=== PATIENT | male | born 1935 | race Caucasian/White ===

== ENCOUNTER 2018-10-13 15:26 | Inpatient (IN) | payer MEDICARE, OTHER ==
[2018-10-13 16:02] LABS: #Basophils 0.1 thou/uL (0.0-0.2); #Eosinphils 0.3 thou/uL (0.0-0.7); #Lymphocytes 1.5 thou/uL (1.20-3.40); #Monocytes 1.4 thou/uL (0.11-0.59); #Neutrophils 14.8 thou/uL (1.40-6.50); %Basophils 0.4 % (0.0-1.0); %Eosinophils 1.7 % (0.0-10.0); %Lymphocytes 8.5 % (21.0-51.0); %Monocytes 7.9 % (0.0-10.0); %Neutrophils 81.5 % (42.0-75.0); Hemoglobin 11.9 g/dL (14.0-18.0); Mean Corpuscular HGB CONC 31.6 g/dL (32.0-36.0); Mean Corpuscular Hemoglobin 30.3 pg (27.0-31.0); Mean Corpuscular Volume 96.1 fL (78.0-98.0); Mean Platelet Volume 7.8 fL (7.4-10.4); Platelet Count 369 thou/uL (130-400); RBC Distribution Width 13.6 % (11.5-14.5); Red Blood Cell (RBC) Count 3.92 mill/uL (4.70-6.10); White Blood Cell (WBC) Count 18.2 thou/uL (4.8-10.8)
[2018-10-13 16:22] LABS: ALT (SGPT) 8 U/L (8-55); AST (SGOT) 15 U/L (5-34); Albumin 2.9 g/dL (3.4-4.8); Alkaline Phosphatase 103 U/L (40-150); Anion Gap 17 mmol/L (10-20); BUN (Urea Nitrogen) 16 mg/dL (8.4-25.7); Bilirubin, Total 0.3 mg/dL (0.2-1.2); Calc. Creatinine Clearance 0 mL/min (70-130); Calcium 8.1 mg/dL (7.8-10.44); Carbon Dioxide 20 mmol/L (23-31); Chloride 109 mmol/L (98-107); Estimated GFR-MDRD 57; Glucose 150 mg/dL (83-110); Potassium 3.8 mmol/L (3.5-5.1); Protein, Total 5.9 g/dL (5.8-8.1); Sodium 142 mmol/L (136-145)
--- NOTE | 2018-10-13 16:28 | RAD ---
FRONTAL VIEW CHEST TWO VIEWS PROVIDED: INDICATION: Dyspnea. Hypoxia. FINDINGS: There is diffuse abnormal alveolar and interstitial opacification throughout the lungs. There is ple ural fluid bilaterally. Right sided PICC line is present. Vascular calcification is seen. There is enlargement of the cardiac silhouette and pulmonary vasculature. IMPRESSION: Findings favor decompensated congestive heart failure with bilateral pulmonary edema and pleural flui d. Recommend followup to resolution. POS: C
[2018-10-13 17:54] LABS: CKMB 1.5 ng/mL (0-6.6)
[2018-10-13] MEDS ORDERED: Piperacillin/Tazobactam 4.5 GM VIAL ONE (18:06)
[2018-10-13] MEDS ORDERED: Sodium Chloride 0.9% 100 ML ONE (18:07)
[2018-10-13 18:18] LABS: Bilirubin Negative (Negative); Blood, Urine Negative (Negative); Clarity CLEAR (Clear); Glucose, Urine (Dipstick) 100 mg/dL (Negative); Leukocyte Negative (Negative); Nitrite Negative (Negative); Protein, Urine (Dipstick) 100 mg/dL (Neg-Trace); Urobilinogen 0.2 mg/dL (0.2-1.0); pH, Urine 5.5 (5.0-9.0)
[2018-10-13 18:24] LABS: Pathc Cast-AUWi Flag 3.48 (0-2.49)
[2018-10-13 18:32] LABS: Bacteria/HPF 1+ HPF (None Seen); Hyaline Casts/LPF 0-3 HYALINE CAST LPF (0-3 Hyaline); Manual Microscopic Reviewed? No Path Casts Seen; RBC/HPF None Seen HPF (0-3); Renal Epithelial None Seen HPF (0-3); Transitional Epithelial NONE SEEN HPF (0-3)
[2018-10-13] MEDS ORDERED: Furosemide 20 MG/2 ML VIAL ONE (18:32)
[2018-10-13] MEDS ORDERED: Vancomycin HCl 1 GM in Premix Bag 1 BAG IVPB SCH (18:45)
[2018-10-13 19:53] LABS: Lactic Acid 1.2 mmol/L (0.5-2.2)
[2018-10-13] MEDS ORDERED: Ondansetron PF 4 MG/2 ML Vial IVP PRN (22:06)
[2018-10-13] MEDS ORDERED: Acetaminophen 325 MG TAB PO PRN (22:06)
[2018-10-13] MEDS ORDERED: Ondansetron ODT 4 MG TAB PO PRN (22:06)
[2018-10-14 01:32] VITALS: BMI 20.7
[2018-10-14] MEDS: Piperacillin/Tazobactam 3.375 GM in Sodium Chloride 0.9% 100 ML IVPB SCH ×3 (02:00→11:29)
[2018-10-14 06:28] LABS: #Basophils 0.1 thou/uL (0.0-0.2); #Eosinphils 0.3 thou/uL (0.0-0.7); #Lymphocytes 1.5 thou/uL (1.20-3.40); #Monocytes 1.2 thou/uL (0.11-0.59); %Basophils 0.5 % (0.0-1.0); %Eosinophils 2.9 % (0.0-10.0); %Lymphocytes 13.7 % (21.0-51.0); %Monocytes 10.9 % (0.0-10.0); Hemoglobin 10.3 g/dL (14.0-18.0); Mean Corpuscular HGB CONC 32.6 g/dL (32.0-36.0); Mean Corpuscular Volume 95.1 fL (78.0-98.0); Mean Platelet Volume 7.8 fL (7.4-10.4); Platelet Count 304 thou/uL (130-400); RBC Distribution Width 13.5 % (11.5-14.5); Red Blood Cell (RBC) Count 3.32 mill/uL (4.70-6.10); White Blood Cell (WBC) Count 11.1 thou/uL (4.8-10.8)
[2018-10-14 06:51] LABS: Troponin I 0.272 ng/mL (< 0.028)
[2018-10-14 06:55] LABS: Anion Gap 15 mmol/L (10-20); BUN (Urea Nitrogen) 16 mg/dL (8.4-25.7); Calc. Creatinine Clearance 53 mL/min (70-130); Calcium 8.2 mg/dL (7.8-10.44); Carbon Dioxide 23 mmol/L (23-31); Chloride 107 mmol/L (98-107); Estimated GFR-MDRD 63; Glucose 87 mg/dL (83-110); Potassium 3.2 mmol/L (3.5-5.1); Sodium 142 mmol/L (136-145)
--- NOTE | 2018-10-14 07:19 | HP ---
PRIMARY CARE PHYSICIAN: Dr. Alfonso Posey. CODE STATUS: Full code. TIME OF EVALUATION: 9:45 p.m. CHIEF COMPLAINT: Shortness of breath. 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 The patient came to the hospital after having shortness of breath for the past few days, severe generalized weakness, being unable to do his activities of daily living. Also reported having chills. Symptoms are severe, gradually worsening. The patient has been on antibiotics as the patient has a PICC line. The patient reportedly had an infective endocarditis that was verified by echo, has been followed by Dr. Sharma due to aortic valve disease. Reportedly, the patient's saturation was 82% on room air, when he was coming here and had been on some oxygen by nasal cannula to keep saturation over 90%. REVIEW OF SYSTEMS: CONSTITUTIONAL: The patient had chills. No fever. Generalized weakness was severe. RESPIRATORY: Shortness of breath, no cough or sputum production. CARDIOVASCULAR: No chest pain or palpitation. GASTROINTESTINAL: No nausea. No vomiting, diarrhea, or abdominal pain. WOODENWARE ASSEMBLER: No dizziness, headache, or feeling lightheaded. GENITOURINARY: No burning on urination. EXTREMITIES: No leg swelling. All other systems were reviewed and negative except for the findings mentioned above. PAST MEDICAL HISTORY: Positive for the findings mentioned in the HPI. PAST SURGICAL HISTORY: No surgical history. PSYCHIATRIC HISTORY: No previous psych history. FAMILY HISTORY: Reviewed and noncontributory for current presentation. KNOWN ALLERGIES: No known drug allergies. REPORTED MEDICATIONS: 1. Ampicillin. 2. Aspirin. 3. Benzonatate. 4. Ceftriaxone. 5. Dorzolamide. 6. Finasteride. PHYSICAL EXAMINATION: VITAL SIGNS: On presentation, heart rate 135, blood pressure 157/85 with respiratory rate of 28, temperature 98.2, and oxygen saturation was 95% on room air. GENERAL APPEARANCE: The patient appears to be ill, oriented, not in acute distress. HEENT: Eyes, normal conjunctivae. Moist oral mucosa. Anicteric. No JVD. RESPIRATORY: Bilateral air entry. No rales. No wheezing. Symmetric expansion. CARDIOVASCULAR: Normal rate, regular rhythm. No murmurs. No gallop. No edema. ABDOMEN: Soft. Normal bowel sounds. MUSCULOSKELETAL: Baseline range of motion and strength. No tenderness. SKIN: Warm, intact. No pallor. No rash or redness. Peripheral pulses are present. Capillary refill seems to be intact. NEURO: No evidence of any new focal weakness. Baseline speech. Cranial nerves seem to be intact. PSYCH: The patient is in good mood. No anxiety. Optimal judgment. DIAGNOSTIC DATA: Chest x-ray was reviewed. The patient has findings favoring decompensated heart failure with bilateral pulmonary edema and pleural fluid. Recommended followup for resolution. LABORATORY DATA: Labs were reviewed. The patient has white count 18.2, hemoglobin 11.9, MCV 96.1, and platelet count 369. Sodium was 142, potassium 3.8, chloride 109, carbon dioxide was 20, anion gap 17, BUN 16, and glucose 150. Lactic acid 2.3, came down to 1.2. Calcium 9.1. AST 15, ALT 8, alkaline phosphatase 103, and CK 29. Troponin was 0.160. Beta-natriuretic peptide was 3109. Serum total protein 5.9 and albumin 2.9. Urine was positive with white count of 7 to 10. ASSESSMENT/PLAN: The patient will be placed in the hospital with following medical problems: 1. Infective endocarditis bacteremia. The patient has been receiving treatment at home that might not be resolving appropriately. The patient has been started on broad-spectrum antibiotics. We will consult Dr. Caballero for any further recommendation at this point. Also, we will consult Cardiology, Dr. Sharma, who has followed this patient before. 2. Possible underlying congestive heart failure on top of sepsis, we will manage with caution to find the right fluid balance for this patient. The patient is very ill. 3. Underlying pneumonia and septic emboli from endocarditis and bacteremia, the patient will be placed on antibiotics. We will follow recommendation, and further management. 4. Sepsis. The patient is tachycardic with white count of 18.2. Possible source of infection is bacteremia, endocarditis, and pneumonia. We will treat as above. Limited with fluid volume given underlying possible congestive heart failure exacerbation. 5. Lactic acidosis at 2.3, came down to normal after initial approach in the ER. We will treat the underlying condition. 6. Non-ST segment elevation myocardial infarction, likely non-ST segment elevation myocardial infarction type 2 given underlying sepsis/congestive heart failure. We will trend troponins. We will adjust treatment accordingly. We are consulting Cardiology for complex underlying comorbidities. We will follow recommendation. 7. Acute exacerbation of congestive heart failure. The patient has very elevated proBNP. There is no echo in file. The patient reportedly had an echo recently. We will do a 2D echo. a. The patient was supposed to see Dr. Martini, the Infectious Disease doctor tomorrow. However, due to complications, we will call Dr. Caballero for recommendation on this patient. He has all records including KIRT done for diagnosis in an outside facility. This can be requested in the morning. Family reported they are bringing that records. 8. Deep venous thrombosis prophylaxis. Job ID: [id number]
[2018-10-14] MEDS ORDERED: Vancomycin HCl 750 MG in Sodium Chloride 0.9% 250 ML 250 ML IVPB SCH (09:00)
[2018-10-14] MEDS ORDERED: Prevnar 13-Val Conj/PF 0.5 ML SYRINGE IM ONE (09:00)
[2018-10-14] MEDS ORDERED: Benzonatate 100 MG CAP PO SCH ×2 (10:15→10:30)
[2018-10-14] MEDS: Enoxaparin Sodium 40 MG/0.4 ML SYRINGE SC SCH (11:30)
[2018-10-14] MEDS ORDERED: Furosemide 40 MG/4 ML VIAL ONE ×2 (11:43→11:49)
[2018-10-14] MEDS ORDERED: Furosemide 100 MG/10 ML VIAL SLOW IVP SCH (11:45)
[2018-10-14] MEDS ORDERED: Potassium Chloride 20 MEQ TAB PO SCH (12:00)
[2018-10-14] MEDS ORDERED: Potassium Chloride 10 MEQ in Premix Bag 1 BAG IVPB SCH ×2 (12:00→13:15)
[2018-10-14] MEDS ORDERED: Magnesium Oxide 400 MG TAB PO SCH ×2 (12:30→13:15)
--- NOTE | 2018-10-14 12:45 | PRG ---
DATE OF SERVICE: 10/14/2018 SUBJECTIVE: I was called to see the patient because the Code Virgilio was called. He is short of breath. His pulse oximetry drops below 90, especially when he coughs. He is just not feeling right. The family members are in the room. His is present. OBJECTIVE: VITAL SIGNS: Blood pressure is 128/67, O2 saturation is fluctuating between 94 to 87 when he coughs. He is on 4 L by nasal cannula. His respiratory rate is approximately 26 to 28, temperature is 97.8, and heart rate is approximately 100 beats per minute. HEENT: Head is atraumatic and normocephalic. Sclerae are nonicteric. Oral mucosa is moist. NECK: Supple. LUNGS: Bilateral crackles and rales at mid level and lower parts of both lungs. Expiratory wheezing present. HEART: S1 and S2 somewhat tachycardic. No S3. No S4. ABDOMEN: Soft, nontender, and nondistended. EXTREMITIES: No clubbing, cyanosis, or edema. NEUROLOGIC: He follows my commands. He moves his all 4 extremities. LABORATORY DATA: Labs showed potassium of 3.2, chloride 142. The rest of chemistry within normal limits. Troponin I 0.272. BNP from yesterday 3109. White count 11.1, hemoglobin 10.3, hematocrit 31.5, and platelet count is 304. Blood cultures negative so far. IMPRESSION: 1. Acute respiratory distress, most likely related to congestive heart failure exacerbation. 2. History of infective endocarditis and bacteremia sepsis. 3. [id number] elevation myocardial infarction. PLAN: We will give him 80 mg of IV Lasix and he will be on 40 IV push of Lasix every 12 hours. We will check his magnesium level and start potassium. His potassium was 3.2 this morning. He will have 10 mEq of KCl IV piggyback x1 and 40 p.o. now and he will probably need more supplementation of potassium later. We will set him up for 20 mEq twice a day starting tomorrow. We will continue his IV vancomycin and Zosyn until he is seen by Dr. Caballero for Infectious Disease evaluation. Echocardiogram is pending and revenue analyst, Dr. Sharma is consulted. 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 We will follow up with serial BMPs. Job ID: [id number]
--- NOTE | 2018-10-14 13:15 | CON ---
DATE OF CONSULTATION: 10/14/2018 I am unsure who is primary care physician at this time. INDICATION FOR CONSULTATION: This is a very pleasant 83-year-old gentleman, who has had a recent history of endocarditis. He has actually been in a rehab facility undergoing daily IV antibiotics. I believe he had enterococcus bacteremia with infective endocarditis. He also has history of severe aortic valve stenosis. He was planned to undergo a TAVR once his infection had cleared; however, he also has prostate problems and need to undergo a transurethral resection of the prostate. We have been attempting to continue him on IV antibiotics in order to clear the infections, so that he could actually have his prostate surgery performed and then to proceed with TAVR if possible. Unfortunately, last few days, he has been not feeling well but nauseated, not being able to eat, and then yesterday became more short of breath and became more nauseated. He actually became presyncopal. He also has a history of intermittent atrial fibrillation on paroxysmal atrial fibrillation. He did not have any fevers, but did have some diaphoresis. He presented to the emergency room and was found to be in atrial fibrillation, somewhat rapid ventricular response, but also had a slight indeterminate cardiac enzymes which most likely just demand ischemia associated with infection and he does have a loud systolic murmur of the aortic area as well as at the apex and possibly he has developed a new infection on the other valves and had worsening of his aortic valve stenosis. He did undergo a cardiac catheterization in 2015, which showed normal coronary arteries and normal left ventricular function. His echo in December of 2017 showed ejection fraction of 60% to 65% with severe aortic valve stenosis with aortic valve area of 0.55 cm2 with mild mitral aortic valve regurgitation and mild tricuspid valve regurgitation. He has been relatively asymptomatic with the aortic valve stenosis and again we have been trying to wait until the infection is cleared prior to proceeding with aortic valve replacement for this severe aortic valve stenosis. He was scheduled to have another echocardiogram in two days from now , but unfortunately presented to the hospital. He also was to have some type of a procedure either the ultrasound of the prostate and possible TURP depending on whether or not his infection had seemed to be cleared. He was also to see his, I believe in two days, Infectious Disease doctor, who is down in [place], but at this time most likely he will need to be seen by the Infectious Disease physician here. He still remains short of breath and this morning after examining the patient, he became diaphoretic again but did not see any changes on the monitor. He continues to be in atrial fibrillation. PAST MEDICAL HISTORY: His past medical history is significant for enterococcus endocarditis, aortic valve stenosis, and paroxysmal atrial fibrillation. He has had history of congestive heart failure in the past. He has bilateral carotid artery stenosis and has hyperlipidemia. He has had acute renal insufficiency in the past. He has some hearing loss. He has gastroesophageal reflux disease and hyperlipidemia. FAMILY HISTORY: Noncontributory. His father did have a myocardial infarction at age 77. He has had no major surgeries except for his heart catheterization. ALLERGIES: NONE. MEDICATIONS: Include; 1. Ampicillin. 2. Aspirin. 3. Benzonatate. 4. Ceftriaxone. 5. Finasteride. 6. Dorzolamide. 7. Ophthalmic drops. SOCIAL HISTORY: He is . He has children, who are alive and well. No history of alcohol or tobacco abuse. REVIEW OF SYSTEMS: A 12-point review of systems is unremarkable except as noted in the history of present illness. He has had no fevers. He states he does have some diaphoresis. He has had some mild weight loss. He is unable to eat the food. In the last few days, he actually gained weight, most likely this is due to volume overload. He has had no chest pain. He has some occasional palpitations. He has no significant lower extremity edema. He denied any edema. He has had no significant muscle aches or pains. He denies any rashes. Neurologically, he had a presyncopal episode, but he has not had any syncope or seizures. PHYSICAL EXAMINATION: GENERAL: Reveals an elderly gentleman, in no acute distress. He does look a little bit uncomfortable. VITAL SIGNS: Blood pressure 120/67, heart rate is 74 to 109, and shows atrial fibrillation. He is afebrile. Respiratory rate is 15, O2 saturations 94%. HEENT: Shows head to be normocephalic and atraumatic. Bilateral carotid bruits are noted. CHEST: At this time is clear to auscultation, did not hear any rales, rhonchi, or wheezing. CARDIOVASCULAR: Reveals an irregular rhythm. He has a very harsh systolic murmur of the aortic area compatible with aortic valve stenosis as well as a 3/6 systolic murmur at the mitral valve area compatible with mitral valve regurgitation. There is some radiation of the entire precordium with a murmur, which radiates also up to the carotid area. Otherwise, there were no heaves or thrills noted. ABDOMEN: Soft, slightly tender. He does have what appears to be some mild ascites. EXTREMITIES: Showed no clubbing, cyanosis, or edema at this time. Pedal pulses are present. NEUROLOGICAL: He appears to be fully intact at this time. He does have somewhat decreased hearing. LABORATORY DATA: His laboratory data shows a hemoglobin of 10.3 earlier, WBC was 14.6, now decreased down to 11.1, platelet count of 304,000. Potassium is 3.2. His creatinine is 1.12 with BUN of 16. His troponin I is 0.166, increased up to 0.27, MB of 1.5. His BNP was 3109. DIAGNOSTIC DATA: His EKG shows atrial fibrillation, but no acute changes to indicate ischemia. Chest x-ray showed some increased vascular markings and bilateral small pleural effusions. IMPRESSION: 1. Congestive heart failure exacerbation, most likely due to worsening of aortic valve stenosis and possible fluid overload either possible further endocarditis or different bacteria perhaps. 2. Endocarditis. He has been on IV antibiotics for his Enterococcus endocarditis. I will obtain an another echocardiogram this morning to see whether or not it appears even by transthoracic echo to be further vegetations, and also to evaluate the aortic valve stenosis. 3. Atrial fibrillation. We will control the heart rate at this time. It is actually under reasonable control given the same with the present medications. 4. History of acute kidney injury in the past. At this time, his renal function appears to be relatively normal. 5. Benign prostatic hypertrophy. He needs to undergo a transurethral resection of the prostate, however, unable to do that due to the patient's illness and continued being on antibiotics for the endocarditis. Once this has resolved, then most likely he can proceed with his transurethral resection of the prostate. We will ask Dr. Caballero to visit with the patient and see if we may need to change different antibiotics, most likely will need to have further blood cultures performed, but he has been on chronic antibiotics for almost six weeks. We may need to proceed with aortic valve replacement sooner than expected. Previous to this, he has not been very symptomatic for his shortness of breath or lower extremity edema. We will also deal with the atrial fibrillation as far as rate control. If necessary, can start a very low dose of beta татьяна. His cardiac enzymes are slightly indeterminate; however, he did have normal coronary arteries by previous cardiac catheterization in 2016. It is highly unlikely that he would develop any significant coronary artery disease at this time unless he has had embolization to the coronary arteries, which would expect a severe ST-segment elevation myocardial infarction. We will be more than happy to continue to follow the patient with you. Further recommendations will depend on the echocardiogram. Job ID: [id number] MTDD
[2018-10-14] MEDS: Benzonatate 100 MG CAP PO SCH ×2 (14:02→21:36)
--- NOTE | 2018-10-14 14:11 | CON ---
DATE OF CONSULTATION: 10/14/2018 REASON FOR CONSULTATION: Bacteremia. HISTORY OF PRESENT ILLNESS: An 83-year-old, who has history of BPH, atrial fibrillation, and recent diagnosis of mitral valve Enterococcus species bacteremia diagnosed at [facility] in [place]. The patient had a KRIT and a PICC line was inserted. He was transferred to rehab in [place] on IV ampicillin and Rocephin, which he has received for the past almost 5 weeks. He was doing quite well until the day before admission when he developed fairly rapid onset of tachypnea with cough and hypoxemia with O2 saturations of 82% on room air. The patient was admitted and the clinical and radiological findings were consistent with pulmonary edema and he has been receiving diuresis. He is currently awake, tachypneic, coughing frequently with frothy pinkish sputum. He denies headaches. No visual symptoms, sore throat, odynophagia, or dysphagia. No chest pain. No back pain. No abdominal pain. He is using the urinal for voiding. 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 PAST SURGICAL HISTORY: No other surgical history. FAMILY HISTORY: Noncontributory. ALLERGIES: NONE. SOCIAL HISTORY: He had been living in [place] with . PHYSICAL EXAMINATION: VITAL SIGNS: With a T-max of 98.7, blood pressure 150/70, pulse 106, respirations 18 to 26, and O2 saturation 98% on 4 L nasal cannula. SKIN: With no areas of skin breakdown. The patient has a peripheral IV access. No Blanco catheter. HEENT: No lymphadenopathy. Ocular movements conjugate. Pupils are 2 mm and reactive. Conjunctivae normal. Oral cavity moist. Still few teeth in place with quite a bit of decay and gum disease. NECK: Supple with positive jugular vein distention. LUNGS: With scattered bilateral inspiratory crackles. HEART: Shows a markedly diminished heart sounds. There is a musical systolic murmur at the base of the heart at the parasternal border and at the apex. The rhythm is regular. ABDOMEN: Soft, not distended. No ascites. No bladder distention. EXTREMITIES: No joint inflammatory activity. Not much edema in lower extremities. Pulses 1+ in dorsalis pedis. He moves extremities equally. NEUROLOGIC: He is awake, knows his name. He knew what hospital he was in and the date. His recollection is somewhat difficult for him and he has a hard time with speech because of his hearing impairments and respiratory distress. LABORATORY DATA: White cell count 18,000 now 11,000, hemoglobin 10, MCV 95, and platelets 304. Sodium 142, creatinine 1.12, lactic acid 1.2, calcium normal, magnesium normal, bilirubin 0.3, AST 15, ALT 8, and alkaline phosphatase 103. BNP was 3100. Albumin 2.9 and globulin 3.0. Urinalysis with 7 to 10 wbc's and 100 protein. Chest x-ray with findings consistent with CHF and pulmonary edema. ASSESSMENT: 1. History of atrial fibrillation. 2. Benign prostatic hyperplasia. 3. 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 4. Sudden decompensation in respiratory status with evidence of pulmonary edema. 5. Aortic stenosis hx DISCUSSION: Differential diagnosis includes persistence of Enterococcus endocarditis with bacteremia versus eradication of bacteria, but with valvular dysfunction/destruction with wide open MR and pulmonary edema. As per dr Sharma pt has tight and that may be the dominant feature in his CHF. One way or another, he would be a surgical candidate. Other possibilities would be another type of valvular dysfunction for example, aortic valve insufficiency, pulmonary embolism , and so on. This appears to be less likely. An echocardiogram has been completed by Dr. Sharma and we will wait on the report as well as the results of the repeated blood cultures. At this point, we would continue his previous prescribed antimicrobial therapy or may be to switch him to ampicillin and gentamicin until we have further information. Most likely, he will need Thoracic Surgery consultation and I would advise transfer to at least [facility], since the patient is at risk for further deterioration of clinical status even with diuresis. It appears he would not be eligible for TAVR although, if the blood cultures remain negative, this would be the best option considering all the problems. Evidently if BC turn positive for Enterococcus, then would have to continue Amp/Gent for another 6 wks. Job ID: [id number] MTDD
--- NOTE | 2018-10-14 14:21 | RAD ---
ONE VIEW CHEST: Comparison: 10-13-18 History: Hypoxemia. FINDINGS: There are persistent interstitial and alveolar opacities. The degree of opacification is slightly dec reased against the improved aeration. Stable right sided PICC line. Small bilateral effusions. No pneumothorax. IMPRESSION: Persistent interstitial and alveolar infiltrates. Overall, there is some improved aeration. Continued surveillance is recommended. POS: [facility]
[2018-10-14] MEDS: Ampicillin 2 GM in Sodium Chloride 0.9% 100 ML IVPB SCH ×2 (16:11→21:38)
[2018-10-14] MEDS: Potassium Chloride 20 MEQ TAB PO SCH (17:04)
[2018-10-14] MEDS ORDERED: Amiodarone 150 MG, Admixture Fee 1 EACH in Dextrose 5% in Water 100 ML IVPB SCH (18:45)
[2018-10-14] MEDS: Amiodarone 450 MG in Dextrose 5% in Water 250 ML IVPB SCH (19:56)
[2018-10-14] MEDS ORDERED: GENTAMICIN SULFATE IVPB SCH (21:00)
[2018-10-14] MEDS: Magnesium Oxide 400 MG TAB PO SCH (21:37)
[2018-10-15] MEDS: Ampicillin 2 GM in Sodium Chloride 0.9% 100 ML IVPB SCH ×6 (01:41→20:13)
[2018-10-15] MEDS: Amiodarone 450 MG in Dextrose 5% in Water 250 ML IVPB SCH (04:53)
--- NOTE | 2018-10-15 08:05 | EKG ---
Test Reason : CODE GREEN Blood Pressure : / mmHG Vent. Rate : 114 BPM Atrial Rate : 114 BPM P-R Int : 000 ms QRS Dur : 148 ms QT Int : 402 ms P-R-T Axes : 000 080 -09 degrees QTc Int : 554 ms Atrial fibrillation with rapid ventricular response Right bundle branch block T wave abnormality, consider inferior ischemia or digitalis effect Abnormal ECG Confirmed by SYDNEY RICKS ([id number]) on 10/15/2018 8:05:28 AM Referred By: JEANCARLOS Confirmed By:SYDNEY RICKS
[2018-10-15] MEDS: Potassium Chloride 20 MEQ TAB PO SCH ×2 (08:30→17:36)
[2018-10-15] MEDS: Benzonatate 100 MG CAP PO SCH ×3 (08:31→20:13)
[2018-10-15] MEDS: Enoxaparin Sodium 40 MG/0.4 ML SYRINGE SC SCH (08:31)
[2018-10-15] MEDS: Magnesium Oxide 400 MG TAB PO SCH ×2 (08:32→20:13)
[2018-10-15 10:08] LABS: #Basophils 0.1 thou/uL (0.0-0.2); #Eosinphils 0.2 thou/uL (0.0-0.7); #Lymphocytes 1.9 thou/uL (1.20-3.40); #Monocytes 1.3 thou/uL (0.11-0.59); %Basophils 0.6 % (0.0-1.0); %Eosinophils 1.3 % (0.0-10.0); %Lymphocytes 13.2 % (21.0-51.0); %Monocytes 9.2 % (0.0-10.0); %Neutrophils 75.7 % (42.0-75.0); Hemoglobin 10.4 g/dL (14.0-18.0); Mean Corpuscular HGB CONC 31.9 g/dL (32.0-36.0); Mean Corpuscular Hemoglobin 30.3 pg (27.0-31.0); Mean Corpuscular Volume 95.1 fL (78.0-98.0); Mean Platelet Volume 7.9 fL (7.4-10.4); Platelet Count 374 thou/uL (130-400); RBC Distribution Width 13.7 % (11.5-14.5); Red Blood Cell (RBC) Count 3.42 mill/uL (4.70-6.10); White Blood Cell (WBC) Count 14.6 thou/uL (4.8-10.8)
[2018-10-15 10:28] LABS: Anion Gap 17 mmol/L (10-20); BUN (Urea Nitrogen) 20 mg/dL (8.4-25.7); Calc. Creatinine Clearance 41 mL/min (70-130); Calcium 8.3 mg/dL (7.8-10.44); Carbon Dioxide 25 mmol/L (23-31); Chloride 106 mmol/L (98-107); Estimated GFR-MDRD 47; Glucose 110 mg/dL (83-110); Potassium 3.7 mmol/L (3.5-5.1); Sodium 144 mmol/L (136-145)
[2018-10-15 12:04] VITALS: BP 140/68
[2018-10-15] MEDS ORDERED: Furosemide 40 MG/4 ML VIAL SLOW IVP SCH (12:30)
--- NOTE | 2018-10-15 13:55 | PDOC.CTH ---
Cardiology Progress Note - Subjective The pt seen and examined. No overnight events. No cardiac complaints. - Objective Vital Signs Temp Pulse Resp BP Pulse Ox 10/15/18 11:20 98.1 F 116 H 17 140/68 96 10/15/18 07:05 97.6 F 87 16 121/58 L 98 10/15/18 04:00 97.6 F 68 16 117/59 L 95 Admit Weight 161 lb 15.931 oz Weight 161 lb 15.931 oz 10/14/18 10/15/18 10/16/18 06:59 06:59 06:59 Intake Total 1554 Output Total 1025 Balance 529 - Physical Examination General/Neuro: alert & oriented x3 Neck: no JVD present Lungs: CTA Heart: other: (irregular) Abdomen: soft Extremities: other: (no edema) - Telemetry Telemetry Rhythm: Afib - Labs Result Diagrams: 10/15/18 09:40 10/15/18 09:40 Troponin/CKMB CK-MB (CK-2) 1.5 ng/mL (0-6.6) 10/13/18 15:50 Troponin I 0.272 ng/mL (< 0.028) H 10/14/18 05:56 - Assessment/Plan 1. Afib with RVR - well controlled with HR with Amiodarone drip; cont. to monitor on tele 2. Acute on Chronic Systolic HF - 3. Severe with valve area of 0.51 sq cm 4. Endocarditis - managed by Dr Caballero. 5. NELIA on CKD - stable 6. BPH MAR reviewed pt. seen and eval. by me. He became SOB again this AM with diaphoresis. Likely due to vol. overload again. i reviewed the CD of the KIRT from [facility]. There is a vegetation on the Ant. MV leaflet and there is also a veg. on the AV. There is significant calcifications on the AV also. No gradient was obtained aross the AV during the KIRT. He may need another KIRT prior to AVR. I will discuss his case with the CV surgeons. In the interim I will try to control the intermittent A-fib. with amiodarone. Continue diuresis. Review of Systems - Review of Systems Constitutional: reports: no symptoms reported EENTM: reports: no symptoms reported Respiratory: reports: no symptoms reported Cardiac (ROS): reports: no symptoms reported ABD/GI: reports: no symptoms reported : reports: no symptoms reported Musculoskeletal: reports: no symptoms reported
[2018-10-15] MEDS: Furosemide 40 MG/4 ML VIAL SLOW IVP SCH (14:08)
--- NOTE | 2018-10-15 16:10 | PRG ---
DATE OF SERVICE: 10/15/2018 SUBJECTIVE: The patient is seen and examined at the bedside. He is feeling significantly better, but later today he started having more cough and some frothy pinkish sputum like yesterday. OBJECTIVE: VITAL SIGNS: Blood pressure is 140/68, pulse is 116, temperature 98.1, respirations 17, and O2 saturation is 96% on 3 L by nasal cannula. HEENT: His head is atraumatic and normocephalic. Eyes are PERRLA. Sclerae are nonicteric. Oral mucosa is moist. NECK: Supple. LUNGS: Breath sounds somewhat diminished at both bases with bilateral rales present. HEART: S1 and S2, somewhat tachycardic. No S3. No S4. There is a systolic murmur over the right sternal border. ABDOMEN: Soft, nontender, and nondistended. EXTREMITIES: No clubbing, cyanosis, or edema. NEUROLOGIC: He is alert and oriented x4. There are no any motor or sensory deficits present. Cranial nerves are intact. LABORATORY DATA: Labs showed white count of 14.6, hemoglobin 10.4, hematocrit 32.5, platelet count 374,000. Chemistry, normal electrolytes. Creatinine 1.44, BUN 20, and calcium 8.3 Microbiology, showed no growth of two blood cultures x48 hours and urine, no growth in 48 hours. DIAGNOSTIC DATA: Echocardiogram report showed LVEF estimated at 35% to 40% and diastolic dysfunction, normal size right ventricular cavity, mitral annular calcification, esaw-aw-bogczqgt mitral regurgitation, and severe aortic stenosis with valve area of 0.51 square cm. Also, there was a trace of tricuspid regurgitation. IMPRESSION: 1. Acute respiratory distress with flash pulmonary edema, improved with diuretics. 2. Severe aortic stenosis, most likely causing #1. 3. History of infective endocarditis and bacteremia and almost completed 6 weeks of IV antibiotic treatment. 4. Vuq-MI-qdqrdxb elevation myocardial infarction. 5. History of atrial fibrillation. 6. Benign prostatic hyperplasia. 7. Cardiomyopathy with LVEF of 30% to 35%. PLAN: The case was discussed with Dr. Sharma, the patient's supplier quality engineering manager. We are going to continue his diuresis and since he started having some increased shortness of breath again with productive sputum, we will move him to [facility] for closer monitoring. He will continue Lasix. He is going to receive additional dose of 40 of Lasix this morning before he is transferred and we will continue his regular dose, which is 40 twice a day. Yesterday, he was seen by Dr. Caballero for ID evaluation. Antibiotic regimen was changed to gentamicin and ampicillin. Also because of his atrial fibrillation, he is started on amiodarone drip per Cardiology. Job ID: [id number]
--- NOTE | 2018-10-15 17:33 | PRG ---
DATE OF SERVICE: 10/15/2018 SUBJECTIVE: Mr. Adams has improved, but then in very quick period of time, he deteriorated with marked tachypnea and clinical findings suggestive of recurrence of pulmonary edema. He is being transferred to [facility] at this time. No chest pain. No abdominal pain. No diarrhea, and he had been voiding in the urinal. He is tachypneic at rest and in distress. He has wheezing, both lung martin with inspiratory crackles up to the third of right and left hemithorax. OBJECTIVE: HEART: S1 and S2. Tachycardia. ABDOMEN: Soft and not distended. EXTREMITIES: No joint inflammatory activity. Pulses 1+ in dorsalis pedis. Extremities are warm. NEUROLOGIC: He is oriented. LABORATORY DATA: White cell count 14,000, hemoglobin 10, and platelets 374. Sodium 144 and creatinine 1.44. Troponin 0.272 and no growth in blood and urine culture thus far 48 hours. The echocardiogram showed a tight aortic stenosis. The mitral valve has minimal leaky regurgitation. EF 35% to 40%. ASSESSMENT AND DISCUSSION: Atrial fibrillation with benign prostatic hyperplasia and tight aortic stenosis, recently diagnosed Enterococcus species bacteremia, finishing course of treatment for endocarditis with ampicillin and Rocephin, now he has developed florid pulmonary edema, recurrent, most likely due to the tight aortic stenosis. It is likely that mitral valve endocarditis has been controlled well, but we will have to await final results of cultures. We will transition the patient back to ampicillin and Rocephin from gentamicin and ampicillin. The patient will need resolution of the aortic stenosis. May be a valvuloplasty until the 6 months period. This is completed and then he will be a candidate for transcatheter aortic valve replacement. Job ID: [id number]
[2018-10-15] MEDS: cefTRIAXone\\ROCEPHIN 2 GM in Sodium Chloride 0.9% 100 ML IVPB SCH (20:19)
--- NOTE | 2018-10-15 22:49 | CON ---
DATE OF CONSULTATION: HISTORY OF PRESENT ILLNESS: Michael Adams is an 83-year-old pleasant gentleman from [place], [place], presented with shortness of breath. This has been going on for several days. He said he could barely walk across the chandra, for which he became dyspneic. He was diagnosed to have endocarditis gram-negative apparently in [place], [place] at the [facility]. He was taking ampicillin and Rocephin, was followed by Infectious Disease at [facility]. Echocardiogram done shows severe aortic stenosis. No evidence of endocarditis and the EF about 40%. He has smoked in the past. Denies any prior history of TB, pneumonia, or bronchial asthma. He quit drinking in 1991. HOME MEDICATIONS: Include; 1. Tamsulosin 0.4. 2. Zocor 40. 3. Eyedrops. 4. Flonase nasal spray. 5. Finasteride 5 mg. 6. Rocephin 2 g q.12 hours. 7. Ampicillin 2 g q.4 hours. He is now switched over to oral gentamicin and ampicillin. ALLERGIES: NONE. SOCIAL HISTORY: Retired from [employer]. PHYSICAL EXAMINATION: VITAL SIGNS: His saturations are 94% on 2 L, pulse was 100, blood pressure 130/80; and respiratory rate 18. CHEST: Extensive bilateral crackles. No wheezing. CARDIAC: Normal S1, S2. No gallops. He has a 2/6 ejection systolic murmur over the right upper sternal border. ABDOMEN: Soft. EXTREMITIES: Trace edema. LABORATORY DATA: Creatinine 1.4. White count 14,000, hemoglobin and hematocrit 10 and 32, and platelet count 374. X-ray shows cardiomegaly, bilateral pleural effusion, right greater than left. IMPRESSION: 1. Dyspnea secondary to bilateral pleural effusions, congestive heart failure. 2. Severe aortic stenosis. 3. Benign prostatic hyperplasia. 4. Endocarditis, on IV antibiotics. Pulmonary chaves, continue cardiac care. Main issue appears to be the aortic stenosis, which needs to be addressed by Cardiology, Pulmonary to follow empiric neb treatments. Consultation note, 70 minutes, 50% direct patient care. Job ID: [id number]
--- NOTE | 2018-10-15 23:49 | CON ---
DATE OF CONSULTATION: 10/15/2018 HISTORY OF PRESENT ILLNESS: He is not having any significant urologic complaints this hospital stay, but he was supposed to see me in the office to anticipate surgery next week, but I was called and told that he was admitted for cardiac issues. He reports voiding fine as I was actually surprised that he did not have a catheter in, based on the presumed diuresis that he would need, but he states he feels he is emptying okay and having no difficulty, although the amount in the urinal was a small void and this is what he has been doing continuously, no one scanned him yet, so we will check that. PAST MEDICAL HISTORY: Significant for hypertension, high cholesterol, aortic stenosis, and the recent episode of endocarditis put him in the hospital and continuing to have IV antibiotics, but ultimately now there is concern for not a full resolution of this as he had flash pulmonary edema that ultimately got him back in the hospital. PAST SURGICAL HISTORY: He has had no definitive surgeries. ALLERGIES: HE IS NOT ALLERGIC TO ANYTHING. MEDICATIONS: Include 1. Daily baby aspirin. 2. Triamterene-hydrochlorothiazide. 3. Simvastatin. 4. Dorzolamide. 5. Finasteride. 6. Flonase. 7. Guaifenesin. 8. Tamsulosin, that is actually stopped due to concerns for side effects. SOCIAL HISTORY: He smoked for five years, less than half pack a day, quit in 1979. No alcohol. No drugs. 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 REVIEW OF SYSTEMS: Showed he had a colonoscopy in 2012 that was normal. He had prior polyps. He has had elevated PSAs, but they have been relatively stable and there has been no concern for cancer on rectal exam. He has significant BPH and prior retention and we already had him set up for [employer] laser vaporization of the prostate next week after getting approval from Cardiology to proceed. Currently, he has shortness of breath that is better than when he came in, but still bothersome. He has a dry cough. He does not have any significant chest pain. His bowels have been okay. He has not had diarrhea or constipation. PHYSICAL EXAMINATION: VITAL SIGNS: He has been afebrile with blood pressure stable and heart rate up to 125, but in the 80s to 100 as well. GENERAL: On exam, he has labored breathing and talking and coughing make him short of breath. He has good color, no diaphoresis, but he did start to feel hot after a coughing spell and they report that he has been sweating with this. HEART: tachycardic with obvious murmurs. LUNGS: Had rhonchi bilaterally. ABDOMEN: Soft, nondistended, nontender. He did not have urgency when I pressed in the suprapubic area. EXTREMITIES: He had no significant lower extremity edema. : His urine was light yellow in the urinal. LABORATORY VALUES: Reviewed. White count has come down from 18 to 14.6. Chemistries that reveal a creatinine that was 1.22, then 1.12 and then back up to 1.4 today. Urine when he came in had 7-10 wbc's, no rbc's, 1+ bacteria and no squamous cells. The culture is negative. His urine output was 1025 over the last 24 hours. There is no new urologic imaging to review. ASSESSMENT: We have an 83-year-old male with benign prostatic hypertrophy, prior retention, on finasteride, not really tolerating alpha blockers in part due to significant heart disease, specifically valvular disease. His cardiac issues are worsening over time and so any urologic intervention will have to be postponed at this time. I reviewed this with Dr. Sharma. I would make sure that he stays on his finasteride while here and check a bladder scan. I followed up on the bladder scan and he had 500, so we will plan on placing a Blanco catheter before he has further distention and in combination with the creatinine rising, we want to make sure that his kidneys have adequate drainage. Job ID: [id number]
[2018-10-16] MEDS: Ampicillin 2 GM in Sodium Chloride 0.9% 100 ML IVPB SCH ×4 (00:22→13:45)
[2018-10-16] MEDS: Furosemide 40 MG/4 ML VIAL SLOW IVP SCH ×2 (05:17→15:03)
[2018-10-16 05:20] LABS: Anion Gap 13 mmol/L (10-20); BUN (Urea Nitrogen) 21 mg/dL (8.4-25.7); Calc. Creatinine Clearance 38 mL/min (70-130); Calcium 8.1 mg/dL (7.8-10.44); Carbon Dioxide 29 mmol/L (23-31); Chloride 105 mmol/L (98-107); Estimated GFR-MDRD 45; Glucose 107 mg/dL (83-110); Potassium 3.4 mmol/L (3.5-5.1); Sodium 144 mmol/L (136-145)
--- NOTE | 2018-10-16 08:37 | PRG ---
DATE OF SERVICE: 10/16/2018 SUBJECTIVE: This morning, he is doing better, less cough, less shortness of breath. OBJECTIVE: VITAL SIGNS: Saturations are 98% on 4 L, temperature 99, blood pressure 117/72. CHEST: Decreased breath sounds. No wheezing. CARDIAC: Normal S1, S2. No gallops. ABDOMEN: Soft. LABORATORY DATA: White count 76409, H 10 and 32, platelet count is normal. Creatinine 1.4. IMPRESSION: 1. Azotemia. 2. Endocarditis. 3. Aortic stenosis. 4. Palpable effusion. 5. Respiratory failure. The patient is stable. Continue present treatment. We will follow while he is in the MICU. Job ID: [id number] MTDD
[2018-10-16] MEDS ORDERED: Tamsulosin HCl 0.4 MG CAP PO SCH (09:00)
[2018-10-16] MEDS ORDERED: Finasteride 5 MG TAB PO SCH (09:00)
[2018-10-16] MEDS: Potassium Chloride 20 MEQ TAB PO SCH (09:19)
[2018-10-16] MEDS: Magnesium Oxide 400 MG TAB PO SCH (09:20)
[2018-10-16] MEDS: Benzonatate 100 MG CAP PO SCH ×2 (09:20→15:09)
[2018-10-16] MEDS: cefTRIAXone\\ROCEPHIN 2 GM in Sodium Chloride 0.9% 100 ML IVPB SCH (09:20)
[2018-10-16] MEDS: Enoxaparin Sodium 40 MG/0.4 ML SYRINGE SC SCH (09:21)
--- NOTE | 2018-10-16 09:30 | PDOC.CTH ---
Cardiology Progress Note - Subjective The pt seen and examined. No cardiac complaints. No overnight events. He has lost appetite. - Objective Vital Signs Temp Pulse Resp Pulse Ox 10/16/18 07:27 98 10/16/18 07:15 99.0 F 10/16/18 06:44 99 10/16/18 06:43 76 20 100 10/16/18 04:00 99.0 F 10/16/18 00:00 99.2 F 10/15/18 23:48 86 18 97 Admit Weight 161 lb 15.931 oz Weight 154 lb 8 oz 10/15/18 10/16/18 10/17/18 06:59 06:59 06:59 Intake Total 1554 1152.5 Output Total 1025 2325 Balance 529 -1172.5 - Physical Examination General/Neuro: alert & oriented x3 Neck: no JVD present Lungs: other: (diminished at bases) Heart: other: (irregular) Extremities: other: (No edema) - Telemetry Telemetry Rhythm: SR with PACs 80s - Labs Result Diagrams: 10/15/18 09:40 10/16/18 03:30 Troponin/CKMB CK-MB (CK-2) 1.5 ng/mL (0-6.6) 10/13/18 15:50 Troponin I 0.272 ng/mL (< 0.028) H 10/14/18 05:56 - Assessment/Plan 1. Afib with RVR - well controlled with HR with Amiodarone drip, which will be changed to 400mg BID for 2wks, 200mg BID for 2wks, and 200mg qd; 2. Acute on Chronic Systolic HF - stable with Lasix 40mg IV BID; start Coreg 3.125mg BID from this AM 3. Severe with valve area of 0.51 sq cm 4. Endocarditis with vegetation to MV and what appears to be a perforation of the anterior leaflet. and probable vegetartion on the AV. He has been on IV antibiotics for almost 6 weeks. - managed by Dr Caballero. 5. NELIA on CKD - no changed 6. BPH - managed by urologist. the pt. was awaiting TURP when he developed Enterococcal endocarditis. 7. CHF. Acute systolic due to severe and onset of atrial fibrillation. The EF has decreased to 35-40%. previously nl. EF.He is doing okay as long as the rate is controlled and he remains in NSR. Today he is in NSR with PAC's. I spoke to CV surgery here and he will likely need AVR and MVR. Suggested he be transferred. I spoke to Dr. Wilkinson in [place] . He has accepted the pt. and he will be transferred to their facility. Exam: few basilar rales, RRR with occasional ectopy. Harsh murmurs over the entire precordium.No edema. MAR reviewed Review of Systems - Review of Systems Constitutional: reports: no symptoms reported EENTM: reports: no symptoms reported Respiratory: reports: no symptoms reported Cardiac (ROS): reports: no symptoms reported ABD/GI: reports: no symptoms reported : reports: no symptoms reported Musculoskeletal: reports: no symptoms reported
[2018-10-16] MEDS ORDERED: Amiodarone 450 MG in Dextrose 5% in Water 250 ML IVPB SCH (09:32)
[2018-10-16] MEDS ORDERED: Amiodarone 200 MG TAB PO SCH ×2 (10:30→21:00)
[2018-10-16] MEDS ORDERED: Carvedilol 3.125 MG TAB PO SCH ×2 (10:30→17:00)
--- NOTE | 2018-10-16 10:32 | PRG ---
DATE OF SERVICE: 10/16/2018 SUBJECTIVE: The patient is seen and examined at the bedside. He does not have appetite, but he does not have much complaints to offer. OBJECTIVE: VITAL SIGNS: Blood pressure is 117/72, pulse is 74, respiratory rate is 17, O2 saturation is 98% on 4 L by nasal cannula. HEENT: His head is atraumatic and normocephalic. Sclerae are nonicteric. Oral mucosa is moist. NECK: Supple. LUNGS: Breath sounds somewhat diminished at both bases. HEART: S1, S2. Irregularly irregular. No S3. No S4. Harsh systolic murmur at the right sternal border, 3/6. ABDOMEN: Soft, nontender, nondistended. EXTREMITIES: No clubbing, cyanosis, or edema. NEUROLOGIC: He is alert and oriented x4. There are no any motor deficits. Cranial nerves are intact. LABORATORY DATA: Showed sodium of 144, potassium 3.4, chloride 105, CO2 of 29, BUN 21, creatinine 1.49. IMPRESSION: 1. Acute pulmonary edema, improved. 2. Severe aortic stenosis. 3. History of infective endocarditis with bacteremia. 4. Rtq-FG-hoearni elevation myocardial infarction. 5. History of atrial fibrillation, currently managed with amiodarone drip. 6. Benign prostatic hyperplasia. 7. Cardiomyopathy with LVEF estimated at 30% to 35%. PLAN: Plan is to continue his diuresis. The patient is supposed to have a KIRT done by Dr. Sharma today. Also after that, the plan is to get valvuloplasty, which is going to bridge him to TAVR procedure in the next 6 months since he had infective endocarditis. This time frame is required to have TAVR done. The patient was seen by Dr. Caballero, who changed his antibiotics to Rocephin and ampicillin to finish his course of antibiotic therapy for infective endocarditis. Also, the patient was seen by urologist and the procedure, which was planned on him is postponed secondary to current issues. Job ID: [id number]
--- NOTE | 2018-10-16 10:47 | PRG ---
DATE OF SERVICE: 10/16/2018 SUBJECTIVE: The patient did well overnight and he reports that he was holding from drinking any fluids because he was concerned about his urination, but now with the catheters in, he is able to feel like he can drink more freely. Of course, his volume will be monitored and controlled by Cardiology. He does feel significantly better than yesterday. His breathing is less labored. He is coughing up less. We reviewed how the endocarditis is still present with vegetations and there is concern that he will need antibiotics for prolonged periods before any procedure whether it be endovascular or open can be done and this makes any urologic intervention impossible until his cardiac status improves. We discussed leaving the catheter in for now and monitoring. I put him back on his finasteride. OBJECTIVE: VITAL SIGNS: T-max 99, saturations 98% to 99% on 4 L nasal cannula, blood pressure stable is stable at 117/72 with a heart rate in the 70s. He had 675 out when the catheter was originally placed, clearly yellow urine and then he had another 1800 overnight. The catheter is draining very clear yellow urine without difficulty and it is secured appropriately. Of note, a 14-[place] coude was placed erroneously by the nurse despite the verbal and written order, it was just a mistake, so if he does have hematuria, then this will need to be changed to a larger size. LABORATORY DATA: His white count is 14.6, slightly increased neutrophils. Hemoglobin and hematocrit are stable. His creatinine wayne a little bit to 1.49. ASSESSMENT: An 83-year-old male with significant cardiac issues, who also has benign prostatic hyperplasia with incomplete emptying if not partial retention, now draining well with a Blanco catheter. Continue finasteride. I will follow along to help determine when we can get the catheter out and hopefully have him void without it. I had previously talked to him about learning CIC in the office and we did not feel that this was going to be possible for him, but we can always bring this up in the future if needed. Job ID: [id number] MTDD
--- NOTE | 2018-10-16 14:12 | DIS ---
DATE OF ADMISSION: 10/13/2018 DATE OF DISCHARGE: 10/16/2018 FINAL DIAGNOSES: 1. Acute pulmonary edema. 2. Severe aortic stenosis. 3. Wkq-CZ-znlmklm elevation myocardial infarction. 4. History of infective endocarditis. 5. History of atrial fibrillation. 6. Benign prostatic hyperplasia. 7. Cardiomyopathy with left ventricular ejection fraction estimated at 30% to 35%. 8. Acute kidney injury on chronic kidney disease. CONSULTANTS: 1. Dr. Facundo Caballero, Infectious Diseases. 2. Dr. Sharma, Cardiology Service. 3. Dr. Howe, Pulmonary Service. 4. Dr. Avila, Urology Service. HOSPITAL COURSE: The patient was an 83-year-old male, who was recently diagnosed with enterococcus endocarditis and was receiving outpatient IV antibiotics with ampicillin and Rocephin. When he started having some severe generalized weakness and increased shortness of breath, he was brought to the emergency room for further evaluation. At the time of emergency visit, his heart rate was up to 135, blood pressure was at 157/85, and respiratory rate was 28. His pulse oximetry was 95% on room air. His white count was elevated at 18.2, hemoglobin 11.9. Electrolytes were within normal limits. Lactic acid was 2.3. Troponin was 0.16. BNP 3109 positive with white count of 7 to 10. The patient got admitted to the hospital for possible underlying congestive heart failure on the top of sepsis and possible pneumonia. The patient got admitted to the hospital. The next day, he had episodes of pulmonary edema. He responded properly to diuresis. Infectious Disease Services were consulted and the patient was seen by Dr. Caballero who recommended to do echocardiogram and evaluate his aortic valve since this was not clear whether his decompensation was secondary to a severe aortic valve stenosis or this was related to his recent echo. The patient had endocarditis which affected the valves. Echocardiogram was done and the patient was seen by commutator inspector, Dr. Sharma, who read that his LVEF was estimated at 35% to 40% and there was some diastolic dysfunction and he had a very severe aortic stenosis with valve area of 0.51 square cm. The patient was moved to [facility] because of severity of the problem and risk of recurrent pulmonary edema with such a high grade of aortic stenosis. He was seen by Dr. Jhaveri, his urologist who was planning to do outpatient procedure on his prostate since he has prostate hypertrophy. Decision was made about postponing any intervention on his prostate since he developed this severe pulmonary edema. Today, he is doing better and the transfer was arranged to [facility] and Dr. Sharma talked to about sending him there for valvuloplasty just to give him a bridge to get TVAR in the next 6 months since this is required because of his current endocarditis this time, so he is discharged in good condition. His blood pressure is 121/57, pulse is 86, respirations 20, O2 saturation is 96% on 3 L by nasal cannula. He is seen and examined before he is discharged. Activities as tolerated with obvious limitations secondary to his cardiac issue. Diet, low salt. MEDICATIONS: At the time of discharge: 1. Amiodarone 400 mg twice a day. 2. Ampicillin 2 g every 4 hours. 3. Carvedilol 3.125 mg twice a day. 4. Ceftriaxone 2 g every 12 hours. 5. Finasteride 5 mg once a day. 6. Furosemide 40 mg p.o. twice a day. 7. Magnesium oxide 400 mg twice a day. 8. Potassium chloride 20 mEq once a day. 9. Flomax 0.4 mg once a day. The patient is seen and examined before his discharge. Discharge time is more than 30 minutes. Job ID: [id number]
[2018-10-16 15:22] VITALS: TEMP 99.8
--- NOTE | 2018-10-17 07:05 | EKG ---
Test Reason : Blood Pressure : / mmHG Vent. Rate : 084 BPM Atrial Rate : 084 BPM P-R Int : 142 ms QRS Dur : 148 ms QT Int : 450 ms P-R-T Axes : 025 064 -38 degrees QTc Int : 531 ms Sinus rhythm with Premature atrial complexes /Suprventricular trigeminy Right bundle branch block T wave abnormality, consider inferior ischemia Abnormal ECG When compared with ECG of 14-OCT-2018 11:46, Sinus rhythm has replaced Atrial fibrillation T wave inversion now evident in Anterior leads Confirmed by SYDNEY RICKS ([id number]) on 10/17/2018 7:05:15 AM Referred By: BIANKA Confirmed By:SYDNEY RICKS
--- NOTE | 2018-10-21 09:14 | PQF ---
[facility] Phys Ther Crystal Reports Winform KulwinderNINATraceyTITOMANINDER PEREZ MD [id number] BLAYNE STORY [id number] CLINICAL DOCUMENTATION CLARIFICATION FORM: POST DISCHARGE Addendum to original discharge summary date: ____ Late entry note date: __ Please exercise your independent, professional judgment in responding to the clarification form. Clinical indicators are provided on the bottom of this form for your review Please check appropriate box(s): Conflicting documentation was noted in the Medical Record, please clarify if patient is being treated/monitored for: [ x ] NSTEMI [ ] NSTEMI TYPE 2 [ ] Other diagnosis [ ] Unable to determine In addition, please specify: Present on Admission (POA): [ x ] Yes [ ] No [ ] Unable to determine For continuity of documentation, please document condition throughout progress notes and discharge summary. Thank You. CLINICAL INDICATORS - SIGNS / SYMPTOMS/ LABS NSTEMI, LIKELY NSTEMI TYPE 2- H&P NSTEMI- D/S, PN 10/14, 10/15, 10/16 TROPONIN 0.16- D/S RISK FACTORS CARDIOMYOPATHY- D/S, PN 10/16 HISTORY OF SMOKING- CONSULT DR. [facility]OURNE TREATMENT CARDIOLOGY CONSULT- DR. RIOS ON OXYGEN- H&P (This form is maintained as a part of the permanent medical record) 2014 [employer]. All Rights Reserved [email or web address] [phone] [email or web address]
--- NOTE | 2018-10-21 09:19 | PQF ---
[employer] Crystal Reports Winform ViewerEDWARDOTraceyTITOMANINDER PEREZ MD [id number] BLAYNE STORY [id number] CLINICAL DOCUMENTATION CLARIFICATION FORM: POST DISCHARGE Addendum to original discharge summary date: ____ Late entry note date: __ Please exercise your independent, professional judgment in responding to the clarification form. Clinical indicators are provided on the bottom of this form for your review Please check appropriate box(s) to clarify if the following diagnosis has been ruled in or ruled out: SEPSIS (CDI/Coding list diagnosis here) [ ] Ruled in diagnosis [ ] Continue to treat [ ] Resolved [ ] Ruled out diagnosis [ x ] Cannot rule out diagnosis [ ] Other diagnosis [ ] Unable to determine In addition, please specify: Present on Admission (POA): [ x ] Yes [ ] No [ ] Unable to determine For continuity of documentation, please document condition throughout progress notes and discharge summary. Thank You. 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 All Rights Reserved [email or web address] [phone] [email or web address]
== END 2018-10-16 18:16 | disposition short-term general hospital (02) | DRG 871 ==
LOC: ERS 15:26 → ERHOLD 17:31 → 2NO 10-14 01:08 → IMCU/EMU 10-15 13:29
PROVIDERS: ADMIT Emergency Medicine; ATTEND Emergency Medicine
DX: A41.9 Sepsis, unspecified organism (principal); I33.0 Acute and subacute infective endocarditis; J18.9 Pneumonia, unspecified organism; I50.23 Acute on chronic systolic (congestive) heart failure; I21.4 Non-ST elevation (NSTEMI) myocardial infarction; J81.0 Acute pulmonary edema; I76 Septic arterial embolism; N17.9 Acute kidney failure, unspecified; I42.9 Cardiomyopathy, unspecified; N18.9 Chronic kidney disease, unspecified; N40.0 Benign prostatic hyperplasia without lower urinary tract symptoms; I35.0 Nonrheumatic aortic (valve) stenosis; I48.0 Paroxysmal atrial fibrillation; R06.03 Acute respiratory distress; Z79.82 Long term (current) use of aspirin; Z87.891 Personal history of nicotine dependence
CPT/HCPCS: 36415; 36416; 71045; 80048; 80053; 80170; 81003; 81015; 82550; 82553; 83605; 83735; 83880; 84443; 84484; 85025; 87040; 87086; 93005; 93010; 93306; 94640; 94760; 96365; 96366; 96367; 96375; J0282; J0290; J0696; J1580; J1650; J1940; J1956; J2405; J2543; J3370; J3480; J7050; J7070; J7620; Q0162

== ENCOUNTER 2018-12-15 00:05 | Outpatient (CLI) | payer MEDICARE ==
[2018-12-15 09:21] LABS: Bilirubin Negative (Negative); Blood, Urine Negative (Negative); Clarity CLEAR (Clear); Glucose, Urine (Dipstick) Negative (Negative); Leukocyte Negative (Negative); Nitrite Negative (Negative); Protein, Urine (Dipstick) Negative (Neg-Trace); Specific Gravity, Urine 1.016 (1.002-1.036); Urobilinogen 0.2 mg/dL (0.2-1.0)
[2018-12-15 09:22] LABS: Hemoglobin 10.4 g/dL (14.0-18.0); Mean Corpuscular Hemoglobin 29.9 pg (27.0-31.0); Mean Corpuscular Volume 93.4 fL (78.0-98.0); Mean Platelet Volume 7.3 fL (7.4-10.4); Platelet Count 254 thou/uL (130-400); RBC Distribution Width 14.2 % (11.5-14.5); Red Blood Cell (RBC) Count 3.48 mill/uL (4.70-6.10); White Blood Cell (WBC) Count 9.8 thou/uL (4.8-10.8)
[2018-12-15 09:23] LABS: Hyaline Casts/LPF 0-3 HYALINE CAST LPF (0-3 Hyaline); Squamous Epithelial 0-3 HPF (0-3)
[2018-12-15 09:34] LABS: Anion Gap 11 mmol/L (10-20); BUN (Urea Nitrogen) 21 mg/dL (8.4-25.7); Calc. Creatinine Clearance 0 mL/min (70-130); Calcium 8.3 mg/dL (7.8-10.44); Carbon Dioxide 24 mmol/L (23-31); Chloride 109 mmol/L (98-107); Estimated GFR-MDRD 61; Glucose 103 mg/dL (83-110); Potassium 3.7 mmol/L (3.5-5.1); Sodium 140 mmol/L (136-145)
[2018-12-15 09:51] LABS: Bacteria/HPF Rare-Few HPF (None Seen); Yeast-All Forms None Seen HPF (None Seen)
== END 2018-12-15 00:06 | disposition home or self-care (01) ==
LOC: LABBT 00:05
PROVIDERS: ATTEND Urology
DX: Z01.812 Encounter for preprocedural laboratory examination (principal); N40.1 Benign prostatic hyperplasia with lower urinary tract symptoms; R97.20 Elevated prostate specific antigen [PSA]; R39.14 Feeling of incomplete bladder emptying; R33.9 Retention of urine, unspecified; N39.0 Urinary tract infection, site not specified
CPT/HCPCS: 80048; 81001; 85027; 87086

== ENCOUNTER 2018-12-23 05:36 | Day surgery (SDC) | payer MEDICARE, OTHER ==
[2018-12-15 08:12] VITALS: BMI 17.3
[2018-12-23] MEDS ORDERED: Cefepime 1 GM in Sodium Chloride 0.9% 100 ML IVPB SCH (06:30)
[2018-12-23] MEDS ORDERED: Fentanyl 100 MCG/2 ML VIAL ONE (06:40)
[2018-12-23] MEDS ORDERED: Furosemide 20 MG/2 ML VIAL ONE (06:53)
[2018-12-23] MEDS ORDERED: Bacitracin Zinc Ointment 30 gm TUBE ONE (07:02)
[2018-12-23] MEDS ORDERED: Bupivacaine 0.25% HCL 30 ML VIAL ONE (07:02)
[2018-12-23] MEDS ORDERED: B & O ONE (07:19)
[2018-12-23] MEDS ORDERED: Ampicillin 2 GM in Sodium Chloride 0.9% 100 ML IVPB SCH (08:15)
[2018-12-23] MEDS ORDERED: PROPOFOL 200 MG/20 ML VIAL ONE (15:10)
[2018-12-23] MEDS ORDERED: Rocuronium Bromide 10 MG/ML (10ML VIAL) ONE (15:10)
[2018-12-23] MEDS ORDERED: Glycopyrrolate 0.2 MG/ML 5 ML SYRINGE ONE (15:10)
[2018-12-23] MEDS ORDERED: Dexamethasone 20 MG/5 ML VIAL ONE (15:10)
[2018-12-23] MEDS ORDERED: Ondansetron PF 4 MG/2 ML Vial ONE (15:10)
[2018-12-23] MEDS ORDERED: ePHEDrine 50 MG/ML VIAL ONE (15:10)
[2018-12-23] MEDS ORDERED: Lidocaine 1% PF 5 ML VIAL ONE (15:10)
[2018-12-23] MEDS ORDERED: diphenhydrAMINE 50 MG/ML VIAL ONE (15:10)
--- NOTE | 2018-12-23 22:07 | OP ---
DATE OF PROCEDURE: 12/23/2018 PREOPERATIVE DIAGNOSES: BPH and urinary tract infections. POSTOPERATIVE DIAGNOSES: BPH and urinary tract infections. PROCEDURES PERFORMED: GreenLight laser vaporization of prostate with enucleation of middle lobe using 170,964 joules as well as circumcision. ANESTHESIA: General with ET tube as well as penile block using 12 mL of lidocaine and Marcaine mixture. COMPLICATIONS: None. SPECIMENS: Prostate chips. BLOOD LOSS: Minimal. DRAINS REMAINING: A 20-Lebanese two-way. 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 He' s done significantly well and now cleared for the procedure. He was to get both cefepime and ampicillin preop, so I ensured this was obtained and being delivered prior to beginning of the case. DESCRIPTION OF PROCEDURE: The patient was brought into the room by Anesthesia, laid on the table in supine position. After receiving general anesthetic, the legs were placed in lithotomy position and his perineum was prepped and draped in sterile fashion. Using a 22.5-Lebanese cystoscope and 30-degree lens, the urethra was traversed and the bladder was inspected. There were significant trabeculations, cellules and hypertrophied bladder wall muscles forming irregular contours of the internal bladder. The ureteral orifices were noted far away enough from the bladder neck and preserved throughout the case. A power level of 80 was used at the bladder neck. A power level of 180 was used for the midgland. The middle lobe was taken down to the level of the floor and then once this was adequately taken down all the way to the veru, I went back to the trigonal ridge in the middle, took that down to the bladder floor using a power of 80 on this portion as well. All the chips were extracted out and sent for specimen. With the bladder filled and then the scope removed, a good stream was noted, the scope was put back in and bladder was drained. Hemostasis was ensured. A small amount of oozing was noted on the floor and hemostasis was achieved with a power level of 80 painting that component. No bleeding was noted at the end of the case. At this point, the scope was removed and a 20-Lebanese catheter was placed initially to gravity--then plugged. He was then repositioned supine and prepped and draped in sterile fashion for the circumcision. 12mL lidocaine/marcaine mix was used for a penile block. Two circumferential incisions were made one with foreskin reduced to the level of the pollack, the other with the foreskin retracted at the level of the pollack approximately 5 mm above that. Sharp edges were excised and then hemostasis was ensured with electrocautery. The 2 skin edges were reapproximated with 3-0 and 4-0 chromic in interrupted fashion. Bacitracin and sterile dressing were applied. The patient was then awakened and transferred to PACU in stable condition after returning the catheter to gravity. Job ID: [id number] [facility] MEDICAL CENTERFabio
== END 2018-12-23 11:32 | disposition home or self-care (01) ==
LOC: SDC 05:36
PROVIDERS: ATTEND Urology
PROC: 0V507ZZ Destruction of Prostate, Via Natural or Artificial Opening (ICD-10-PCS; principal; 2018-12-23)
PROC: 0VTTXZZ Resection of Prepuce, External Approach (ICD-10-PCS; principal; 2018-12-23)
DX: N40.1 Benign prostatic hyperplasia with lower urinary tract symptoms (principal); N39.498 Other specified urinary incontinence; R35.0 Frequency of micturition; R35.1 Nocturia; N39.0 Urinary tract infection, site not specified; I10 Essential (primary) hypertension; E78.00 Pure hypercholesterolemia, unspecified; Z87.891 Personal history of nicotine dependence; Z79.82 Long term (current) use of aspirin; Z79.899 Other long term (current) drug therapy; Z95.2 Presence of prosthetic heart valve
CPT/HCPCS: 88305; J0290; J0692; J1100; J1200; J1940; J2001; J2405; J2704; J3010; J3490; S0020